=== PATIENT | female | born 1995 | race Caucasian/White ===

== ENCOUNTER 2016-08-30 19:21 | Inpatient (IN) | payer OTHER ==
[~2016-08-30] VITALS: Ht 152.4 cm; Wt 40.8 kg
[2016-08-31 15:20] LABS: *AMPHETAMINE, URINE POSITIVE (NEGATIVE); *BARBITURATE, URINE NEGATIVE (NEGATIVE); *CANNABINOID, URINE NEGATIVE (NEGATIVE); *COCCAINE, URINE NEGATIVE (NEGATIVE); *OPIATE, URINE POSITIVE (NEGATIVE); *PHENCYCLIDINE SCREEN,URINE NEGATIVE (NEGATIVE)
[2016-08-31] MEDS ORDERED: LORAZEPAM 1 MG TABLET PO PRN ×2 (15:45)
[2016-08-31] MEDS ORDERED: ACETAMINOPHEN 325 MG TABLET PO PRN (15:45)
[2016-08-31] MEDS ORDERED: MAGNESIUM HYDROXIDE 30 ML LIQUID UDC PO PRN (15:45)
[2016-08-31] MEDS ORDERED: IBUPROFEN 600 MG TABLET PO PRN (15:45)
[2016-08-31] MEDS ORDERED: MAG HYDROX/AL HYDROX/SIMETH 30 ML LIQUID UDC PO PRN (15:45)
[2016-08-31] MEDS ORDERED: DICYCLOMINE HCL 20 MG TABLET PO PRN (15:45)
[2016-08-31] MEDS ORDERED: THIAMINE HCL 200 MG/2 ML VIAL IM ONE (15:45)
[2016-08-31] MEDS ORDERED: LORAZEPAM 2 MG/1 ML VIAL IM PRN (15:45)
[2016-08-31] MEDS ORDERED: CLONIDINE HCL 0.1 MG TABLET PO PRN (15:45)
[2016-08-31] MEDS ORDERED: BUPRENORPHINE HCL 2 MG TAB.SUBL SL PRN (15:45)
[2016-08-31] MEDS ORDERED: MIRALAX 17 GM POWD.PACK PO PRN (15:45)
[2016-08-31] MEDS ORDERED: HYDROXYZINE PAMOATE 25 MG CAPSULE PO PRN (15:45)
[2016-08-31] MEDS ORDERED: ONDANSETRON ODT 4 MG TAB.RAPDIS SL PRN (15:45)
[2016-08-31] MEDS ORDERED: LOPERAMIDE HCL 2 MG CAPSULE PO PRN ×2 (15:45)
[2016-08-31 15:56] LABS: *URINE HCG, QUAL NEGATIVE (NEGATIVE)
[2016-08-31 17:10] VITALS: BP 96/61
[2016-08-31] MEDS: LORAZEPAM 1 MG TABLET PO SCH ×2 (17:19→21:36)
[2016-08-31 17:38] LABS: BASOPHILS % (AUTO) 0.4 % (0.0-2.0); EOSINOPHILS % (AUTO) 0.4 % (0.0-7.0); HEMATOCRIT 45.4 % (37-47); HEMOGLOBIN 14.8 G/DL (12.0-16.0); LYMPHOCYTES # (AUTO) 1.6 K/UL (0.8-4.8); LYMPHOCYTES % (AUTO) 18.6 % (20.5-51.5); MEAN CORPUSCULAR HEMOGLOBIN 29.6 UUG (27.0-31.0); MEAN CORPUSCULAR HGB CONC 33 g/dL (32.0-37.0); MEAN CORPUSCULAR VOLUME 90.6 FL (81.0-99.0); MONOCYTES # (AUTO) 0.5 K/UL (0.1-1.30); MONOCYTES % (AUTO) 5.9 % (0.0-11.0); NEUTROPHILS # (AUTO) 6.7 K/UL (1.8-8.9); NEUTROPHILS % (AUTO) 74.7 % (38.5-71.5); PLATELET COUNT (AUTO) 319 K/UL (150-450); RED BLOOD CELL COUNT(AUTO) 5.01 MIL/UL (4.2-5.4); RED CELL DISTRIBUTION WIDTH 13.4 % (11.5-14.5); WHITE BLOOD COUNT (AUTO) 8.8 K/UL (4.0-11.2)
[2016-08-31 18:00] LABS: ETHANOL < 3 MG/DL (0-0)
[2016-08-31 18:07] LABS: ALANINE AMINOTRANSFERASE 14 U/L (14-59); ALBUMIN 4.1 g/dL (3.4-5.0); ALKALINE PHOSPHATASE 56 U/L (50-136); AMYLASE 49 U/L (25-115); ASPARTATE AMINOTRANSFERASE 19 U/L (15-37); BILIRUBIN,TOTAL 0.2 mg/dL (0.2-1.0); CALCIUM 9.2 mg/dL (8.5-10.1); CARBON DIOXIDE 27 mmol/L (21-32); CHLORIDE 105 mmol/L (98-107); CREATININE 0.8 mg/dL (0.6-1.3); GFR 90 mL/min (>60); GLUCOSE 63 mg/dL (74-106); LIPASE 181 U/L (73-393); MAGNESIUM 2.4 mg/dL (1.8-2.4); POTASSIUM 4.4 mmol/L (3.5-5.1); SODIUM SERUM 142 mmol/L (136-145); TOTAL PROTEIN, SERUM 8.1 g/dL (6.4-8.2); UREA NITROGEN, BLOOD 5 mg/dL (7-18)
[2016-08-31 18:18] LABS: THYROID STIMULATING HORMONE 0.537 mIU/mL (0.358-3.740)
[2016-08-31 18:20] LABS: HIV-1 p24 ANTIGEN NON REACTIVE (NONREACTIVE); HIV-1/2 ANTIBODY NON REACTIVE (NONREACTIVE)
[2016-08-31 20:00] VITALS: BP 106/66
[2016-08-31] MEDS: METHOCARBAMOL 750 MG TABLET PO PRN (21:36)
[2016-09-01] VITALS: BP 115/70
[2016-09-01] MEDS: diphenhydrAMINE 50 MG CAPSULE PO PRN (01:43)
[2016-09-01 04:00] VITALS: BP 109/66
[2016-09-01 08:04] VITALS: BP 90/58
[2016-09-01] MEDS ORDERED: TUBERCULIN,PURIF.PROT.DERIV. 5 TU/0.1 ML TEST ID ONE (09:00)
[2016-09-01] MEDS: BUPRENORPHINE HCL 2 MG TAB.SUBL SL SCH ×5 (09:00→20:36)
[2016-09-01] MEDS: MULTIVITAMINS,THERAPEUTIC TABLET PO SCH (09:23)
[2016-09-01] MEDS: THIAMINE HCL 100 MG TABLET PO SCH (09:23)
[2016-09-01] MEDS: LORAZEPAM 1 MG TABLET PO SCH ×4 (09:23→20:35)
[2016-09-01] MEDS: FOLIC ACID 1 MG TABLET PO SCH (09:23)
[2016-09-01] MEDS: FLUOXETINE HCL 20 MG CAPSULE PO SCH (09:23)
[2016-09-01 12:25] VITALS: BP 112/69
[2016-09-01 16:30] VITALS: BP 96/62
[2016-09-01 20:00] VITALS: BP 105/67
[2016-09-01] MEDS: GABAPENTIN 300 MG CAPSULE PO SCH (20:35)
[2016-09-01] MEDS: METHOCARBAMOL 750 MG TABLET PO PRN (20:36)
[2016-09-02] VITALS: BP 101/64
[2016-09-02] MEDS: diphenhydrAMINE 50 MG CAPSULE PO PRN ×2 (00:28→23:20)
[2016-09-02 04:00] VITALS: BP 103/61
[2016-09-02 08:00] VITALS: BP 95/61
[2016-09-02] MEDS: FLUOXETINE HCL 20 MG CAPSULE PO SCH (09:41)
[2016-09-02] MEDS: MULTIVITAMINS,THERAPEUTIC TABLET PO SCH (09:42)
[2016-09-02] MEDS: THIAMINE HCL 100 MG TABLET PO SCH (09:42)
[2016-09-02] MEDS: LORAZEPAM 1 MG TABLET PO SCH ×3 (09:42→21:02)
[2016-09-02] MEDS: BUPRENORPHINE HCL 2 MG TAB.SUBL SL SCH ×3 (09:42→21:01)
[2016-09-02] MEDS: FOLIC ACID 1 MG TABLET PO SCH (09:42)
[2016-09-02] MEDS: GABAPENTIN 300 MG CAPSULE PO SCH ×3 (09:42→21:01)
[2016-09-02] MEDS ORDERED: BISACODYL 5 MG TABLET.DR PO PRN (11:15)
[2016-09-02 12:00] VITALS: BP 117/67
[2016-09-02] MEDS: BACLOFEN 10 MG TABLET PO SCH ×2 (15:16→21:01)
[2016-09-02] MEDS: DOCUSATE SODIUM 250 MG CAPSULE PO SCH (15:18)
[2016-09-02 16:00] VITALS: BP 110/68
[2016-09-02] MEDS: BOOST PLUS 237 ML LIQUID (RICH CHOCOLATE) PO SCH (17:36)
[2016-09-02 20:00] VITALS: BP 106/61
[2016-09-03] VITALS: BP 101/53
[2016-09-03 04:00] VITALS: BP 104/58
[2016-09-03 08:00] VITALS: BP 104/61
[2016-09-03] MEDS: THIAMINE HCL 100 MG TABLET PO SCH (08:20)
[2016-09-03] MEDS: BOOST PLUS 237 ML LIQUID (RICH CHOCOLATE) PO SCH ×2 (08:20→16:34)
[2016-09-03] MEDS: GABAPENTIN 300 MG CAPSULE PO SCH ×2 (08:20→14:10)
[2016-09-03] MEDS: LORAZEPAM 1 MG TABLET PO SCH ×4 (08:21→21:36)
[2016-09-03] MEDS: MULTIVITAMINS,THERAPEUTIC TABLET PO SCH (08:21)
[2016-09-03] MEDS: DOCUSATE SODIUM 250 MG CAPSULE PO SCH (08:21)
[2016-09-03] MEDS: BACLOFEN 10 MG TABLET PO SCH ×3 (08:21→21:36)
[2016-09-03] MEDS: FOLIC ACID 1 MG TABLET PO SCH (08:21)
[2016-09-03] MEDS: FLUOXETINE HCL 20 MG CAPSULE PO SCH (08:46)
[2016-09-03] MEDS ORDERED: BUPRENORPHINE HCL 2 MG TAB.SUBL SL SCH (09:00)
[2016-09-03 12:00] VITALS: BP 106/65
[2016-09-03] MEDS: BUPRENORPHINE HCL 2 MG TAB.SUBL SL SCH ×2 (14:10→21:37)
[2016-09-03 14:14] LABS: HCV AB >11.0 s/co ratio (0.0-0.9); HEPATITIS B CORE AB, IgM Negative (Negative); HEPATITIS B SURFACE AG Negative (Negative)
[2016-09-03 16:00] VITALS: BP 106/64
[2016-09-03] MEDS ORDERED: FLEET ENEMA 133 ML BOTTLE RC PRN (16:00)
[2016-09-03] MEDS ORDERED: MAGNESIUM CITRATE 296 ML BOTTLE PO PRN (16:00)
[2016-09-03 20:00] VITALS: BP 138/77
[2016-09-03] MEDS ORDERED: GABAPENTIN 300 MG CAPSULE PO SCH (21:00)
[2016-09-03] MEDS: diphenhydrAMINE 50 MG CAPSULE PO PRN (23:44)
[2016-09-04] VITALS: BP 103/60
[2016-09-04 07:59] LABS: CALCIUM 8.2 mg/dL (8.5-10.1); CREATININE 0.8 mg/dL (0.6-1.3); PHOSPHOROUS 4.9 mg/dL (2.5-4.9); POTASSIUM 4.3 mmol/L (3.5-5.1)
[2016-09-04] MEDS: BOOST PLUS 237 ML LIQUID (RICH CHOCOLATE) PO SCH ×2 (08:00→16:42)
[2016-09-04] MEDS ORDERED: GABAPENTIN 300 MG CAPSULE PO SCH (09:00)
[2016-09-04] MEDS: MULTIVITAMINS,THERAPEUTIC TABLET PO SCH (09:35)
[2016-09-04] MEDS: THIAMINE HCL 100 MG TABLET PO SCH (09:35)
[2016-09-04] MEDS: DOCUSATE SODIUM 250 MG CAPSULE PO SCH (09:36)
[2016-09-04] MEDS: FLUOXETINE HCL 20 MG CAPSULE PO SCH (09:36)
[2016-09-04] MEDS: LORAZEPAM 1 MG TABLET PO SCH ×3 (09:36→21:32)
[2016-09-04] MEDS: FOLIC ACID 1 MG TABLET PO SCH (09:36)
[2016-09-04] MEDS: BUPRENORPHINE HCL 2 MG TAB.SUBL SL SCH ×3 (09:36→21:31)
[2016-09-04] MEDS: BACLOFEN 10 MG TABLET PO SCH ×3 (09:36→21:31)
[2016-09-04 10:22] VITALS: BP 98/60
[2016-09-04 13:04] VITALS: BP 112/70
[2016-09-04 14:06] LABS: *HCV QUANT HCV Not Detected IU/mL (.)
[2016-09-04] MEDS: GABAPENTIN 300 MG CAPSULE PO SCH ×2 (14:54→21:31)
[2016-09-04 18:02] VITALS: BP 111/64
[2016-09-04 20:00] VITALS: BP 111/59
[2016-09-05] VITALS: BP 118/58
[2016-09-05] MEDS: diphenhydrAMINE 50 MG CAPSULE PO PRN ×2 (00:14→23:43)
[2016-09-05] MEDS: BOOST PLUS 237 ML LIQUID (RICH CHOCOLATE) PO SCH ×2 (08:32→17:08)
[2016-09-05] MEDS ORDERED: BUPRENORPHINE HCL 2 MG TAB.SUBL SL SCH ×2 (09:00)
[2016-09-05] MEDS ORDERED: LORAZEPAM 1 MG TABLET PO SCH ×2 (09:00)
[2016-09-05 09:08] VITALS: BP 105/62
[2016-09-05] MEDS: BACLOFEN 10 MG TABLET PO SCH ×3 (09:38→21:18)
[2016-09-05] MEDS: FLUOXETINE HCL 20 MG CAPSULE PO SCH (09:38)
[2016-09-05] MEDS: FOLIC ACID 1 MG TABLET PO SCH (09:38)
[2016-09-05] MEDS: MULTIVITAMINS,THERAPEUTIC TABLET PO SCH (09:38)
[2016-09-05] MEDS: GABAPENTIN 300 MG CAPSULE PO SCH (09:38)
[2016-09-05] MEDS: THIAMINE HCL 100 MG TABLET PO SCH (09:38)
[2016-09-05] MEDS: DOCUSATE SODIUM 250 MG CAPSULE PO SCH (09:39)
[2016-09-05 14:05] VITALS: BP 105/62
[2016-09-05] MEDS: GABAPENTIN 400 MG CAPSULE PO SCH ×2 (14:49→21:18)
[2016-09-05] MEDS ORDERED: Gabapentin PO (17:16)
[2016-09-05] MEDS ORDERED: DICY20TA28 PO (17:16)
[2016-09-05] MEDS ORDERED: CLON0.1T14 PO (17:16)
[2016-09-05] MEDS ORDERED: Docusate Sodium PO (17:16)
[2016-09-05] MEDS ORDERED: DIPH50CA37 PO (17:16)
[2016-09-05] MEDS ORDERED: Ibuprofen PO (17:16)
[2016-09-05] MEDS ORDERED: Fluoxetine Hcl PO (17:16)
[2016-09-05] MEDS ORDERED: Baclofen PO (17:16)
[2016-09-05] MEDS ORDERED: HYDR-3895 PO (17:16)
[2016-09-05 17:40] VITALS: BP 105/62
[2016-09-05 19:10] LABS: *AMPHETAMINE, URINE NEGATIVE (NEGATIVE); *BARBITURATE, URINE NEGATIVE (NEGATIVE); *CANNABINOID, URINE NEGATIVE (NEGATIVE); *COCCAINE, URINE NEGATIVE (NEGATIVE); *OPIATE, URINE NEGATIVE (NEGATIVE); *PHENCYCLIDINE SCREEN,URINE NEGATIVE (NEGATIVE)
[2016-09-05 20:00] VITALS: BP 115/63
[2016-09-06] VITALS: BP 102/64
[2016-09-06 03:06] LABS: *AMPHETAMINE Positive (.); *CODEINE Positive (.); *HYDROMORPHONE Negative (Cutoff=300); *METHAMPHETAMINE Positive (.); *OPIATES Positive ng/mL (Cutoff=300)
[2016-09-06 08:00] VITALS: BP 110/68
[2016-09-06] MEDS: FLUOXETINE HCL 20 MG CAPSULE PO SCH (08:07)
[2016-09-06] MEDS: GABAPENTIN 400 MG CAPSULE PO SCH (08:07)
[2016-09-06] MEDS: MULTIVITAMINS,THERAPEUTIC TABLET PO SCH (08:07)
[2016-09-06] MEDS: THIAMINE HCL 100 MG TABLET PO SCH (08:07)
[2016-09-06] MEDS: DOCUSATE SODIUM 250 MG CAPSULE PO SCH (08:07)
[2016-09-06] MEDS: BACLOFEN 10 MG TABLET PO SCH (08:07)
[2016-09-06] MEDS: FOLIC ACID 1 MG TABLET PO SCH (08:07)
[2016-09-06] MEDS: BOOST PLUS 237 ML LIQUID (RICH CHOCOLATE) PO SCH (08:07)
== END 2016-09-06 08:45 | disposition other institution (70) | DRG 895 ==
LOC: SRC 08-31 14:03
PROVIDERS: ADMIT Internal Medicine; ATTEND Internal Medicine
PROC: HZ2ZZZZ Detoxification Services for Substance Abuse Treatment (ICD-10-PCS; principal; 2016-08-31)
PROC: HZ41ZZZ Group Counseling for Substance Abuse Treatment, Behavioral (ICD-10-PCS; 2016-09-01)
PROC: HZ31ZZZ Individual Counseling for Substance Abuse Treatment, Behavioral (ICD-10-PCS; 2016-09-02)
DX: F11.23 Opioid dependence with withdrawal (principal); E46 Unspecified protein-calorie malnutrition; Z68.1 Body mass index [BMI] 19.9 or less, adult; F15.20 Other stimulant dependence, uncomplicated; F10.230 Alcohol dependence with withdrawal, uncomplicated; Y90.9 Presence of alcohol in blood, level not specified; Z90.49 Acquired absence of other specified parts of digestive tract; Z81.1 Family history of alcohol abuse and dependence; Z81.8 Family history of other mental and behavioral disorders; Z59.0 Homelessness; Z88.0 Allergy status to penicillin; F41.9 Anxiety disorder, unspecified; B19.20 Unspecified viral hepatitis C without hepatic coma; F17.210 Nicotine dependence, cigarettes, uncomplicated; F12.10 Cannabis abuse, uncomplicated; Z86.59 Personal history of other mental and behavioral disorders; K59.03 Drug induced constipation
CPT/HCPCS: 36415; 70030-TC; 80307; 80324; 80361; 83690; 83735; 84100; 84443; 84703; 85025; 86580; 86592; 86705; 86803; 87340; 87521; 87806; A4663; G6040-TC; J3411; Q0163

== ENCOUNTER 2016-09-16 12:54 | Inpatient (IN) | payer OTHER ==
[~2016-09-16] VITALS: Ht 152.4 cm; Wt 41.7 kg
[~2016-09-16 12:54] MED LIST: Baclofen PO; CLON0.1T14 PO; DICY20TA28 PO; DIPH50CA37 PO; Docusate Sodium PO; Fluoxetine Hcl PO; Gabapentin PO; HYDR-3895 PO; Ibuprofen PO
[2016-09-16] MEDS ORDERED: FLUO-120 PO (14:39)
[2016-09-16] MEDS ORDERED: TRAZ-147 PO (14:39)
[2016-09-16] MEDS ORDERED: GABA800T2 PO (14:39)
[2016-09-16 14:53] LABS: *URINE HCG, QUAL NEGATIVE (NEGATIVE)
[2016-09-16] MEDS ORDERED: MIRALAX 17 GM POWD.PACK PO PRN (15:00)
[2016-09-16] MEDS ORDERED: METHOCARBAMOL 750 MG TABLET PO PRN (15:00)
[2016-09-16] MEDS ORDERED: MAGNESIUM HYDROXIDE 30 ML LIQUID UDC PO PRN (15:00)
[2016-09-16] MEDS ORDERED: LOPERAMIDE HCL 2 MG CAPSULE PO PRN ×2 (15:00)
[2016-09-16] MEDS ORDERED: THIAMINE HCL 200 MG/2 ML VIAL IM ONE (15:00)
[2016-09-16] MEDS ORDERED: BUPRENORPHINE HCL 2 MG TAB.SUBL SL PRN (15:00)
[2016-09-16] MEDS ORDERED: ONDANSETRON 4 MG/2 ML VIAL IM PRN (15:00)
[2016-09-16] MEDS ORDERED: DICYCLOMINE HCL 20 MG TABLET PO PRN (15:00)
[2016-09-16] MEDS ORDERED: ONDANSETRON ODT 4 MG TAB.RAPDIS SL PRN (15:00)
[2016-09-16] MEDS ORDERED: ACETAMINOPHEN 325 MG TABLET PO PRN (15:00)
[2016-09-16] MEDS ORDERED: LORAZEPAM 2 MG/1 ML VIAL IM PRN (15:00)
[2016-09-16] MEDS ORDERED: diphenhydrAMINE 50 MG CAPSULE PO PRN (15:00)
[2016-09-16] MEDS ORDERED: MAG HYDROX/AL HYDROX/SIMETH 30 ML LIQUID UDC PO PRN (15:00)
[2016-09-16] MEDS ORDERED: LORAZEPAM 1 MG TABLET PO PRN (15:00)
[2016-09-16] MEDS ORDERED: CLONIDINE HCL 0.1 MG TABLET PO PRN (15:00)
[2016-09-16] MEDS ORDERED: CLON0.1T PO (15:02)
[2016-09-16] MEDS ORDERED: HYDR-3026 PO (15:02)
--- NOTE | 2016-09-16 15:10 | NUR ---
Admission Note VS: BP: 126/78 HR:62, SpO2: 98% RA, RR: 18, Temp: 98.2 Pain: 0/10 Height: 5'0" Weight: 92 LB Allergies: Penicillin Pt is a 21 y/o female admitted to [facility] on 09/16/16 at 1500. Pt is under the care of Dr. Dexter for Heroin and alcohol dependence. Pt denies suicidal and homicidal ideations at this time. Pt reports being at [facility] in the last 30 days. Pt reports being homeless at this time. MRSA has been ordered and nasal swab has been done per unit protocol. Pt denies Chest Pain and SOB. Pt brought Gabapentin 900mg, Trazodone 100mg and Prozac with her. Upon assessment pt's skin is intact. COWS 0, CIWA 0 upon admission. NKA, A/Ox4 and able to answer questions necessary for the admission process. Pt is Full Code. VS WNL, Regular Diet. Pt reports Hx of anxiety, depression, HepC and anorexia. Reports she is hep c +, and had gall bladder removed last year. patient. Family Hx of alcoholism. Pt reports having multiple seizures in the past, last one in June of 2016. Pt denies having a PCP. Breathing is even and unlabored, SpO2 is 98% on RA. Pt ambulates with a steady gait. Pt reports regular bowel movement pattern of every two days when she isn't using heroin however due to heavy use her bowel movements have become irregular. LBM on 09/14/16. Pt reports smoking [address] Dexter has been notified, pt has been placed on a 4 day Ativan and 4 day Subutex taper set to begin 09/17/16. All needs have been met. Pt has been oriented to the room and the unit. All safety measures in place per hospital policy. Bed in lowest position, side rails up x2 and padded, call-light within reach. Will continue to monitor. Substance Abuse: Heroin: 1.g IV daily for 2.54 weeks. Last Use: 1.g IV 09/16/16 1000 Alcohol: 1 pint of vodka daily for 2.5 weeks. Last Use: 09/16/16 0700
[2016-09-16 15:11] LABS: *AMPHETAMINE, URINE NEGATIVE (NEGATIVE); *BARBITURATE, URINE NEGATIVE (NEGATIVE); *CANNABINOID, URINE NEGATIVE (NEGATIVE); *COCCAINE, URINE NEGATIVE (NEGATIVE); *OPIATE, URINE POSITIVE (NEGATIVE); *PHENCYCLIDINE SCREEN,URINE NEGATIVE (NEGATIVE)
[2016-09-16 15:35] LABS: BASOPHILS % (AUTO) 0.4 % (0.0-2.0); EOSINOPHILS % (AUTO) 0.2 % (0.0-7.0); HEMATOCRIT 42.9 % (37-47); HEMOGLOBIN 14.5 G/DL (12.0-16.0); LYMPHOCYTES # (AUTO) 1.6 K/UL (0.8-4.8); LYMPHOCYTES % (AUTO) 13.7 % (20.5-51.5); MEAN CORPUSCULAR HEMOGLOBIN 29.8 UUG (27.0-31.0); MEAN CORPUSCULAR HGB CONC 34 g/dL (32.0-37.0); MEAN CORPUSCULAR VOLUME 88.3 FL (81.0-99.0); MONOCYTES # (AUTO) 0.5 K/UL (0.1-1.30); MONOCYTES % (AUTO) 4.3 % (0.0-11.0); NEUTROPHILS # (AUTO) 9.9 K/UL (1.8-8.9); NEUTROPHILS % (AUTO) 81.4 % (38.5-71.5); PLATELET COUNT (AUTO) 265 K/UL (150-450); RED BLOOD CELL COUNT(AUTO) 4.86 MIL/UL (4.2-5.4)
[2016-09-16] MEDS: LORAZEPAM 1 MG TABLET PO PRN (15:44)
[2016-09-16 15:48] LABS: ETHANOL < 3 MG/DL (0-0)
[2016-09-16 15:52] LABS: ALANINE AMINOTRANSFERASE 24 U/L (14-59); ALKALINE PHOSPHATASE 59 U/L (50-136); AMYLASE 29 U/L (25-115); ASPARTATE AMINOTRANSFERASE 22 U/L (15-37); BILIRUBIN,TOTAL 0.8 mg/dL (0.2-1.0); CARBON DIOXIDE 24 mmol/L (21-32); CHLORIDE 95 mmol/L (98-107); CREATININE 0.9 mg/dL (0.6-1.3); GLUCOSE 104 mg/dL (74-106); MAGNESIUM 1.9 mg/dL (1.8-2.4); POTASSIUM 3.5 mmol/L (3.5-5.1); TOTAL PROTEIN, SERUM 8.6 g/dL (6.4-8.2); UREA NITROGEN, BLOOD 13 mg/dL (7-18)
[2016-09-16 16:00] VITALS: BP 128/75
[2016-09-16 16:02] LABS: LIPASE 66 U/L (73-393); THYROID STIMULATING HORMONE 0.405 mIU/mL (0.358-3.740)
--- NOTE | 2016-09-16 16:15 | NUR ---
Medication re-assessment Medication was effective. Pt reports relief from withdrawal symptoms. CIWA went from 7 to 2.
--- NOTE | 2016-09-16 16:44 | NUR ---
PRN Ativan Administered PRN Ativan 1mg per Dr. Dexter for withdrawal symptoms.
[2016-09-16 17:50] LABS: *BLOOD, URINE 3+ (NEGATIVE); *CLARITY,URINE SLIGHTLY CLOUDY (CLEAR); *COLOR,URINE YELLOW (YELLOW); *KETONES,URINE 4+ (NEGATIVE); *PROTEIN,URINE 1+ (NEGATIVE); *UROBILINOGEN,URINE 0.2 E.U./dl (NORMAL); LEUKOCYTE ESTERASE ,URINE 1+ (NEGATIVE); NITRITE, URINE NEGATIVE (NEGATIVE); PH,URINE 5.5 (5.0-8.0); UGLUCOSE NEGATIVE (NEGATIVE)
[2016-09-16 18:16] LABS: *BILIRUBIN,URIN 1+ (NEGATIVE)
[2016-09-16 18:21] LABS: BACTERIA,URINE FEW /HPF (NONE SEEN); SQUAMOUS EPITHELIAL CELL,UR MODERATE /HPF (NONE SEEN); URINE AMORPHOUS URATE FEW /HPF
--- NOTE | 2016-09-16 18:50 | NUR ---
End of Shift Endorsed pt to nightshift nurse. PT is tolerating the taper well, pt is moderately withdrawing AEB CIWA 7, COWS 6. Pt is a 21 y/o female admitted to [facility] on 09/16/16 at 1500. Pt is under the care of Dr. Dexter for Heroin and alcohol dependence. Pt denies suicidal and homicidal ideations at this time. Pt reports being at [facility] in the last 30 days. Pt reports being homeless at this time. MRSA has been ordered and nasal swab has been done per unit protocol. Pt denies Chest Pain and SOB. Pt brought Gabapentin 900mg, Trazodone 100mg and Prozac with her. Upon assessment pt's skin is intact. COWS 0, CIWA 0 upon admission. NKA, A/Ox4 and able to answer questions necessary for the admission process. Pt is Full Code. VS WNL, Regular Diet. Pt reports Hx of anxiety, depression, HepC and anorexia. Reports she is hep c +, and had gall bladder removed last year. patient. Family Hx of alcoholism. Pt reports having multiple seizures in the past, last one in June of 2016. Pt denies having a PCP. Breathing is even and unlabored, SpO2 is 98% on RA. Pt ambulates with a steady gait. Pt reports regular bowel movement pattern of every two days when she isn't using heroin however due to heavy use her bowel movements have become irregular. LBM on 09/14/16. Pt reports smoking [address] Dexter has been notified, pt has been placed on a 4 day Ativan and 4 day Subutex taper set to begin 09/17/16. All needs have been met. Pt has been oriented to the room and the unit. All safety measures in place per hospital policy. Bed in lowest position, side rails up x2 and padded, call-light within reach. Will continue to monitor.
[2016-09-16 20:00] VITALS: BP 109/67
--- NOTE | 2016-09-16 20:00 | NUR ---
1999 Patient received awake and lying quietly in bed watching television. Patient responds to nurse's greeting and introduction with, " I was here a few weeks ago. I remember you". Patient is oriented to person, place, day, date and her personal situation. Easily reoriented to time. Patient's color is tannish-pink and her skin is clean, warm, dry and intact. Lung sounds are clear bilaterally and active bowel sounds are noted X 4 abdominal Quads, per auscultation. Patient denies any pain or other discomforts at this time and she states that since her admission today, she has just been basically resting. She did not attend PM group tonight, but she states that she has eaten a little from her regular diet tray and is taking fluids okay, with no gastric issues noted so far. Vital signs are: 98.2-80-18 109/67, O2 Sat 96%, COWS 1, CIWA 1. Patient was admitted today, 09/16/16, for Heroin and Alcohol withdrawal and she has been started on a 4-Day Ativan medication taper and will start on a 4-Day Subutex medication taper on 09/17/16 per MD orders, for withdrawal symptoms. Patient's mood/affect is slightly flat and withdrawn, however she is cooperative and verbally appropriate when interacting with nurse. Patient offers no requests or c/o anything at this time. Bed is locked and in lowest position, bed rails are up X 2 and call light within patient's easy reach.
[2016-09-16] MEDS ORDERED: LORAZEPAM 1 MG TABLET PO SCH (21:00)
[2016-09-16] MEDS: GABAPENTIN 400 MG CAPSULE PO SCH (21:58)
[2016-09-17] VITALS: BP 99/63
--- NOTE | 2016-09-17 04:00 | NUR ---
Patient refused to be awakened to have V/S taken at this time.
--- NOTE | 2016-09-17 06:30 | NUR ---
0630 Patient slept a total of a 10 hours and she had 1 void and no stools. Total intake was 355 ml p.o. No Prn medications given this shift. V/SS afebrile, last CIWA 1, last COWS 1. Patient is presently resting comfortably with eyes closed and respirations quiet, even, unlabored at 12. Patient is in stable condition at this time.
--- NOTE | 2016-09-17 07:05 | NUR ---
Patient is sleeping at this time, so CIWA, COWS deferred at this time.
--- NOTE | 2016-09-17 07:09 | NUR ---
Start of Shift Endorsement received from nightshift nurse. Pt is a 21 y/o female admitted for alcohol and heroin dependence. Pt has been placed on a 4 day Ativan and 4 day Subutex taper set to began today, 09/17/16. Pt was tolerating the detox process during the night and mildly withdrawing AEB CIWA 1, COWS 1 at 0400. Pt appears to be sleeping at this time, eyes closed, breathing even and unlabored. Pt is responsive to touch and name. Pt received PRN Ativan during the night. VS WNL. Full Code. Pt is in STABLE condition at this time. Remains compliant with medication and diet regimen. All needs have been met, All safety measures in place per hospital policy. Bed in lowest position, side rails up x2, call-light within reach. Will continue to monitor.
[2016-09-17 08:00] VITALS: BP 103/67
[2016-09-17 08:34] LABS: CREATININE 0.8 mg/dL (0.6-1.3); MAGNESIUM 1.9 mg/dL (1.8-2.4); PHOSPHOROUS 3.5 mg/dL (2.5-4.9); POTASSIUM 3.4 mmol/L (3.5-5.1)
[2016-09-17 08:35] LABS: BASOPHILS % (AUTO) 0.4 % (0.0-2.0); EOSINOPHILS # (AUTO) 0.1 K/uL (0.0-0.7); EOSINOPHILS % (AUTO) 1.4 % (0.0-7.0); HEMATOCRIT 40.2 % (37-47); HEMOGLOBIN 13.9 G/DL (12.0-16.0); LYMPHOCYTES # (AUTO) 1.6 K/UL (0.8-4.8); LYMPHOCYTES % (AUTO) 24.1 % (20.5-51.5); MEAN CORPUSCULAR HEMOGLOBIN 30.3 UUG (27.0-31.0); MEAN CORPUSCULAR HGB CONC 34 g/dL (32.0-37.0); MEAN CORPUSCULAR VOLUME 88.1 FL (81.0-99.0); MONOCYTES # (AUTO) 0.5 K/UL (0.1-1.30); MONOCYTES % (AUTO) 7.9 % (0.0-11.0); NEUTROPHILS # (AUTO) 4.6 K/UL (1.8-8.9); NEUTROPHILS % (AUTO) 66.2 % (38.5-71.5); PLATELET COUNT (AUTO) 288 K/UL (150-450); RED BLOOD CELL COUNT(AUTO) 4.57 MIL/UL (4.2-5.4)
[2016-09-17 08:40] LABS: WHITE BLOOD COUNT (AUTO) 6.8 K/UL (4.0-11.2)
[2016-09-17] MEDS ORDERED: TUBERCULIN,PURIF.PROT.DERIV. 5 TU/0.1 ML TEST ID ONE (09:00)
[2016-09-17] MEDS: THIAMINE HCL 100 MG TABLET PO SCH (09:36)
[2016-09-17] MEDS: GABAPENTIN 400 MG CAPSULE PO SCH ×3 (09:36→20:51)
[2016-09-17] MEDS: LORAZEPAM 1 MG TABLET PO SCH ×3 (09:36→20:51)
[2016-09-17] MEDS: FOLIC ACID 1 MG TABLET PO SCH (09:36)
[2016-09-17] MEDS: MULTIVITAMINS,THERAPEUTIC TABLET PO SCH (09:37)
[2016-09-17] MEDS: BUPRENORPHINE HCL 2 MG TAB.SUBL SL SCH ×3 (09:39→20:52)
[2016-09-17] MEDS ORDERED: POTASSIUM CHLORIDE 10 MEQ CAPSULE.SA PO ONE (09:45)
[2016-09-17] MEDS: FLUOXETINE HCL 20 MG CAPSULE PO SCH (11:46)
[2016-09-17 12:00] VITALS: BP 98/62
[2016-09-17] MEDS: LORAZEPAM 1 MG TABLET PO PRN (13:09)
--- NOTE | 2016-09-17 13:09 | NUR ---
PRN ATIVAN Administered PRN Ativan 1mg for increased anxiety and heart rate. Pt presented with CIWA 7. Will re-assess.
--- NOTE | 2016-09-17 13:40 | NUR ---
Medication Re-assessment Pt reports decrease in anxiety and presents with CIWA score of 4. Medication was effective.
[2016-09-17 16:00] VITALS: BP 115/68
--- NOTE | 2016-09-17 18:45 | NUR ---
End of Shift Endorsement given to nightshift nurse. Pt is a 21 y/o female admitted for alcohol and heroin dependence. Pt has been placed on a 4 day Ativan and 4 day Subutex taper starting today. Pt is tolerating the detox process, moderately withdrawing at this time AEB CIWA 5, COWS 7 at 1600. PT participated in groups and activities. Educated pt on importance of learning coping mechanisms to help her succeed in being sober. Pt received PRN Ativan. VS WNL with tachycardia. Intake: 1600ml, Void x2, BM x0. Full Code. Pt is in STABLE condition at this time. Remains compliant with medication and diet regimen. All needs have been met, All safety measures in place per hospital policy. Bed in lowest position, side rails up x2, call-light within reach. Will continue to monitor.
[2016-09-17 20:00] VITALS: BP 119/68
[2016-09-17] MEDS: QUETIAPINE FUMARATE 25 MG TABLET PO SCH (20:52)
[2016-09-18] VITALS: BP 82/54
--- NOTE | 2016-09-18 04:00 | NUR ---
Patient refused to be awakened for V/S to be taken at this time.
--- NOTE | 2016-09-18 07:20 | NUR ---
Start of Shift Report from night nurse: pt is 21 y/o male here for Opiate r/t Heroin IV 1g/d and Etoh r/t Vodka 1pint/d; 4 day Ativan and 4 day Subutex tapers ordered. Pt is a full code, regular diet, allergic the PCN, fall and seizure precautions ordered. HHx: Seizures r/t w/d's, anxiety, depression, relapse. V/S stable except HR is tachycardic at rest 120-130's at rest and Dr. Dexter notified with EKG ordered with NSR with ST and no new recommendations. Skin is intact. No PRN's given last night. Last COWS 3 CIWA 2. Pt is awake in room resting in bed. Will cont. to monitor the pt.
[2016-09-18 07:38] LABS: HEPATITIS B SURFACE AG Negative (Negative)
[2016-09-18 08:00] VITALS: BP 109/65
[2016-09-18] MEDS: MULTIVITAMINS,THERAPEUTIC TABLET PO SCH (08:37)
[2016-09-18] MEDS: GABAPENTIN 400 MG CAPSULE PO SCH ×3 (08:37→21:29)
[2016-09-18] MEDS: THIAMINE HCL 100 MG TABLET PO SCH (08:37)
[2016-09-18] MEDS: LORAZEPAM 1 MG TABLET PO SCH ×4 (08:37→21:30)
[2016-09-18] MEDS: FLUOXETINE HCL 20 MG CAPSULE PO SCH (08:38)
[2016-09-18] MEDS: FOLIC ACID 1 MG TABLET PO SCH (08:42)
[2016-09-18] MEDS ORDERED: BUPRENORPHINE HCL 2 MG TAB.SUBL SL SCH (09:00)
[2016-09-18 12:00] VITALS: BP 116/71
--- NOTE | 2016-09-18 12:27 | NUR ---
Therapist encouraged client to participate in daily group psychotherapy, and explained some benefits of attending. Client expressed that she sould attend group at 11am and 3:30pm today.
[2016-09-18] MEDS: BACLOFEN 10 MG TABLET PO SCH ×2 (15:20→21:30)
[2016-09-18] MEDS: BUPRENORPHINE HCL 2 MG TAB.SUBL SL SCH ×2 (15:20→21:30)
[2016-09-18] MEDS: DICYCLOMINE HCL 20 MG TABLET PO SCH ×2 (15:20→21:30)
[2016-09-18 16:00] VITALS: BP 107/71
--- NOTE | 2016-09-18 17:40 | NUR ---
New Orders-MRSA +MRSA Nares; new orders for Contact Isolations and Bactroban topical applied as ordered. New orders for HCV Reflex and Chem 22 labs 09/19/16. Will cont. to monitor the pt.
--- NOTE | 2016-09-18 18:44 | NUR ---
End of Shift Report to night nurse: pt is 21 y/o male here for Opiate r/t Heroin IV 1g/d and Etoh r/t Vodka 1pint/d; 4 day Ativan and 4 day Subutex tapers ordered. Pt is a full code, regular diet, allergic the PCN, fall and seizure precautions ordered. HHx: Seizures r/t w/d's, anxiety, depression, relapse. V/S stable except HR 109 and decreased to 90 after Subutex and Ativan given. Skin is intact. No PRN's given last night. New Lab results for +MRSA with new orders for Contact Isolations and Bactroban topical. New orders for Labs; HCV Reflex and Chem 22 tomorrow. I discussed the UA results with Dr. Dexter and no new orders. Pt attended group and activities. No hallucinations delusions or suicidal ideations note. Last COWS 5 CIWA 3.
[2016-09-18 20:00] VITALS: BP 121/75
--- NOTE | 2016-09-18 20:00 | NUR ---
Start of Shift Note: Report received from day shift nurse. Pt is a 21 yo female admitted on 09/16/2016 for medically-supervised observation of withdrawal from ETOH and opiates. Pt reports using 1gm IV heroin and drinking 1 pint vodka daily for 2.5 weeks. Pt is on day 2 of 4-day Ativan and Subutex tapers. Pt received with last COWS=5, CIWA=3, and no PRN's were given during day shift. Pt is full code status. Pt reports allergy to PCN. Pt is on a regular diet. Pt is on isolation for MRSA nares. Pt reports PMHx: seizure (06/2016), anxiety, and depression. Pt received in room, and reports anxiety and headache. Bed is in low position and locked, side rails up x2, call light within reach. Will continue to monitor.
[2016-09-18] MEDS: MUPIROCIN 2% OINT 22 GM TUBE NS SCH (21:29)
[2016-09-18] MEDS: IBUPROFEN 600 MG TABLET PO PRN (21:30)
[2016-09-18] MEDS: QUETIAPINE FUMARATE 25 MG TABLET PO SCH (21:30)
--- NOTE | 2016-09-18 21:30 | NUR ---
PRN Motrin: Patient complains of headache. Patient rates pain 5/10. Administered PRN Motrin as ordered. Will continue to monitor.
--- NOTE | 2016-09-18 22:30 | NUR ---
PRN Reassessment: Patient reports that PRN Motrin was effective, and denies headache at this time.
[2016-09-19] VITALS: BP 100/50
--- NOTE | 2016-09-19 | NUR ---
COWS/CIWA Deferred: COWS and CIWA assessments are deferred for sleep. V/S stable. All safety precautions are in place. Will continue to monitor. Addendum: 09/19/16 at 0326 by TRIXIE CANCHOLA RN Amended: Links added.
[2016-09-19 04:00] VITALS: BP 117/67
--- NOTE | 2016-09-19 04:00 | NUR ---
COWS/CIWA Deferred: Ordered 04:00 COWS and CIWA deferred for sleep. V/S stable. All safety precautions are in place. Will continue to monitor. Addendum: 09/19/16 at 0440 by TRIXIE CANCHOLA RN Amended: Links added.
--- NOTE | 2016-09-19 07:10 | NUR ---
Start of Shift Report from night nurse with update: pt is 21 y/o male here for Opiate r/t Heroin IV 1g/d and Etoh r/t Vodka 1pint/d; 4 day Ativan and 4 day Subutex tapers ordered. Pt is a full code, regular diet, allergic the PCN, fall and seizure precautions ordered. HHx: Seizures r/t w/d's, anxiety, depression, relapse. V/S stable with improved HR in 90's last night. Skin is intact. PRN Motrin given last night for MICHAUD. Endorsed to me to given MRSA education to the pt. Last COWS 4 CIWA 6. Pt is awake in room resting in bed. Will cont. to monitor the pt.
--- NOTE | 2016-09-19 07:23 | NUR ---
End of Shift Note: Pt is a 21 yo female admitted to [facility] on 09/16/2016 for medically-supervised observation of withdrawal from ETOH and opiates. Pt reports PMHx: seizure (06/2016), anxiety, and depression. Pt is full code status. Pt is on a regular diet. Pt reports allergy to PCN. Pt is on isolation for MRSA nares. Pt reports using 1gm IV heroin and drinking 1 pint vodka daily for 2.5 weeks. Pt is to start day 3 of 4-day Ativan and Subutex tapers. Scheduled medication regime effectively managed s/s of withdrawal this shift, in addition to PRN Motrin for headache. Last COWS=4, CIWA=6 at 20:00. V/S stable throughout shift, with increased HR of 92 at 20:00. Total fluid intake this shift: 473 ml; output: urine x 1 and BM 0. Pt is currently in bed and slept 8 hours this shift. All needs have been attended and met. Pt endorsed to day shift nurse.
[2016-09-19 08:00] VITALS: BP 107/71
[2016-09-19 08:05] LABS: CREATININE 0.9 mg/dL (0.6-1.3); MAGNESIUM 1.9 mg/dL (1.8-2.4); PHOSPHOROUS 4.4 mg/dL (2.5-4.9); POTASSIUM 4.6 mmol/L (3.5-5.1)
[2016-09-19] MEDS: BUPRENORPHINE HCL 2 MG TAB.SUBL SL SCH ×3 (09:58→21:26)
[2016-09-19] MEDS: DICYCLOMINE HCL 20 MG TABLET PO SCH ×3 (09:58→21:25)
[2016-09-19] MEDS: THIAMINE HCL 100 MG TABLET PO SCH (09:58)
[2016-09-19] MEDS: MULTIVITAMINS,THERAPEUTIC TABLET PO SCH (09:58)
[2016-09-19] MEDS: GABAPENTIN 400 MG CAPSULE PO SCH ×3 (09:59→21:25)
[2016-09-19] MEDS: BACLOFEN 10 MG TABLET PO SCH (09:59)
[2016-09-19] MEDS: FLUOXETINE HCL 20 MG CAPSULE PO SCH (09:59)
[2016-09-19] MEDS: FOLIC ACID 1 MG TABLET PO SCH (09:59)
[2016-09-19] MEDS: MUPIROCIN 2% OINT 22 GM TUBE NS SCH ×2 (09:59→21:24)
[2016-09-19] MEDS: IBUPROFEN 600 MG TABLET PO PRN (09:59)
[2016-09-19] MEDS: LORAZEPAM 1 MG TABLET PO SCH ×3 (09:59→21:25)
[2016-09-19] MEDS ORDERED: BENZOCAINE/MENTH/CETYLPYRD LOZENGE MM PRN (10:30)
[2016-09-19 12:00] VITALS: BP 108/59
[2016-09-19] MEDS ORDERED: BACLOFEN 10 MG TABLET PO SCH (15:00)
[2016-09-19 16:00] VITALS: BP 117/89
[2016-09-19] MEDS: BACLOFEN 20 MG TABLET PO SCH ×2 (17:01→21:26)
--- NOTE | 2016-09-19 19:16 | NUR ---
End of Shift Report to night nurse: pt is 21 y/o female here for Opiate r/t Heroin IV 1g/d and Etoh r/t Vodka 1pint/d; 4 day Ativan and 4 day Subutex tapers ordered. Pt is a full code, regular diet, allergic the PCN, fall and seizure precautions & Contact Isolations r/t +MRSA Nares ordered. HHx: Seizures r/t w/d's, anxiety, depression, relapse. V/S stable with HR 100 max during my shift and stable 92-93. Skin is intact. No PRN's given during my shift. New orders for CXR to r/o TB since pt refused PPD test on 09/17/16 and endorsed to night nurse to f/u with results. Pt attend group therapy and and activities during my shift. No hallucinations, delusions or suicidal ideations. Last COWS 5 CIWA 3
[2016-09-19 20:00] VITALS: BP 113/77
--- NOTE | 2016-09-19 20:00 | NUR ---
Start of Shift Note: Report received from day shift nurse. Pt is a 21 Y/O female admitted on 09/16/2016 for medically-supervised withdrawal from ETOH and opiates. Pt reports using 1gm IV heroin and drinking 1 pint vodka daily for 2.5 weeks. Pt is on day 3 of 4-day Ativan and Subutex tapers. Pt received with last COWS=5, CIWA=3, and no PRN's were given during day shift. Full code, regular diet, allergy to PCN. Pt is on isolation for MRSA nares. CXR ordered for TB clearance. Pt reports PMHx: seizure (06/2016), anxiety, and depression. Pt received in room, and reports anxiety and diaphoresis. Bed is in low position and locked, side rails up x2, call light within reach. Will continue to monitor.
[2016-09-19] MEDS: QUETIAPINE FUMARATE 25 MG TABLET PO SCH (21:25)
[2016-09-20] VITALS: BP 100/57
--- NOTE | 2016-09-20 | NUR ---
COWS/CIWA Deferred: COWS and CIWA deferred for sleep. V/S stable. All safety precautions are in place. Will continue to monitor. Addendum: 09/20/16 at 0140 by TRIXIE CANCHOLA RN Amended: Links added.
[2016-09-20 04:00] VITALS: BP 106/59
--- NOTE | 2016-09-20 04:00 | NUR ---
COWS and CIWA Deferred: COWS and CIWA assessments are deferred for sleep. V/S stable. Will continue to monitor. Addendum: 09/20/16 at 0559 by TRIXIE CANCHOLA RN Amended: Links added.
--- NOTE | 2016-09-20 07:05 | NUR ---
Start of Shift Endorsement received from nightshift nurse. Pt is a 21 y/o female admitted for alcohol and heroin dependence. Pt has been placed on a 4 day Ativan and 4 day Subutex taper. Pt is tolerating the taper well AEB COWS 4, CIWA 4. Pt has been placed in contact isolation due to positive MRSA results. Pt did not receive any PRN medications.Pt reports sleeping 7 hours during the night. VS WNL. Full Code. Pt is in STABLE condition at this time. Remains compliant with medication and diet regimen. All needs have been met, All safety measures in place per hospital policy. Bed in lowest position, side rails up x2, call-light within reach. Will continue to monitor.
--- NOTE | 2016-09-20 07:15 | NUR ---
End of Shift Note: Pt is a 21 Y/O female admitted to [facility] on 09/16/2016 for medically-supervised withdrawal from ETOH and opiates. Pt reports PMHx: seizure (last 06/2016), depression, and anxiety. Full code, allergy to PCN, regular diet , isolation for MRSA nares. Pt reports drinking 1 pint vodka daily and using 1gm IV heroin for 2.5 weeks. Pt is to start the fourth day of 4-day Ativan and Subutex tapers. Scheduled medication regime effectively managed s/s of withdrawal this shift, and no PRN medications were necessary. Last COWS=4, CIWA=4 at 20:00. V/S stable throughout shift. CXR results pending for TB clearance. Total fluid intake this shift: 1006 ml; output: urine x 3 and BM x 0. Pt is currently in bed and slept 7 hours this shift. All needs have been attended and met. Pt endorsed to day shift nurse.
[2016-09-20 08:00] VITALS: BP 113/69
[2016-09-20] MEDS: DICYCLOMINE HCL 20 MG TABLET PO SCH ×3 (08:33→21:47)
[2016-09-20] MEDS: MULTIVITAMINS,THERAPEUTIC TABLET PO SCH (08:33)
[2016-09-20] MEDS: GABAPENTIN 400 MG CAPSULE PO SCH ×3 (08:33→21:45)
[2016-09-20] MEDS: LORAZEPAM 1 MG TABLET PO SCH ×2 (08:34→21:45)
[2016-09-20] MEDS: THIAMINE HCL 100 MG TABLET PO SCH (08:34)
[2016-09-20] MEDS: FOLIC ACID 1 MG TABLET PO SCH (08:34)
[2016-09-20] MEDS: BUPRENORPHINE HCL 2 MG TAB.SUBL SL SCH ×2 (08:34→21:46)
[2016-09-20] MEDS: BACLOFEN 20 MG TABLET PO SCH ×3 (08:34→21:45)
[2016-09-20] MEDS: MUPIROCIN 2% OINT 22 GM TUBE NS SCH ×2 (08:38→21:45)
[2016-09-20] MEDS: FLUOXETINE HCL 20 MG CAPSULE PO SCH (09:20)
[2016-09-20 12:00] VITALS: BP 125/66
[2016-09-20 16:00] VITALS: BP 112/49
--- NOTE | 2016-09-20 16:53 | NUR ---
Therapist informed client of group times. Client did not go to groups because she is not feeling well.
--- NOTE | 2016-09-20 18:49 | NUR ---
End of Shift Endorsement given to nightshift nurse. Pt is a 21 y/o female admitted for alcohol and heroin dependence. Pt has been placed on a 4 day Ativan and 4 day Subutex taper. Pt is tolerating the taper well AEB COWS 3, CIWA 2. Pt has been placed in contact isolation due to positive MRSA results. Pt did not receive any PRN medications.Pt spent the whole day in her room reporting she just wants to rest. Pt did not participate in groups and activities. Intake: 1150ml, Void x1, BM x0. Educated pt on importance of staying hydrated. VS WNL. Full Code. Pt is in STABLE condition at this time. Remains compliant with medication and diet regimen. All needs have been met, All safety measures in place per hospital policy. Bed in lowest position, side rails up x2, call-light within reach. Will continue to monitor.
[2016-09-20 20:00] VITALS: BP 118/68
--- NOTE | 2016-09-20 20:00 | NUR ---
Start of Shift Note: Report received from day shift nurse. Pt is a 21F admitted on 09/16/2016 for medically-supervised withdrawal from ETOH and opiates, and reported using 1gm IV heroin and drinking 1 pint vodka daily for 2.5 weeks. Pt has one remaining dose of a 4-day Ativan taper and has two doses remaining of a 4-day Subutex taper. Pt received with last COWS=5, CIWA=3, and no PRN's were given during day shift. Full code status, on regular diet, and reports allergy to PCN. Pt is on isolation for MRSA nares. Pt reports PMHx: seizure (06/2016), anxiety, and depression. Pt received in room, and reports anxiety, chills, diaphoresis, restlessness, dyspepsia. Pupils 6mm. Bed is in low position and locked, side rails up x2, call light within reach. Will continue to monitor.
[2016-09-20] MEDS: QUETIAPINE FUMARATE 25 MG TABLET PO SCH (21:46)
[2016-09-21] VITALS: BP 105/72
--- NOTE | 2016-09-21 | NUR ---
COWS and CIWA Deferred: COWS and CIWA assessments are deferred for sleep. V/S stable. All safety precautions are in place. Will continue to monitor. Addendum: 09/21/16 at 0213 by TRIXIE CANCHOLA RN Amended: Links added.
[2016-09-21 04:00] VITALS: BP 86/52
--- NOTE | 2016-09-21 04:00 | NUR ---
COWS/CIWA Deferred: COWS/CIWA deferred for sleep, V/S stable, all safety precautions in place. Addendum: 09/21/16 at 0500 by TRIXIE CANCHOLA RN Amended: Links added.
--- NOTE | 2016-09-21 06:37 | NUR ---
End of Shift Note: Pt is a 21F admitted to [facility] on 09/16/2016 for medically-supervised withdrawal from alcohol and heroin. Pt reports PMHx: seizure, depression, and anxiety. Full code status, allergy to PCN, regular diet, and contact precautions/isolation for MRSA nares. Pt reports drinking a pint of vodka and using 1gm IV heroin daily for 2.5 weeks. Pt has completed a 4-day Ativan taper and has one remaining dose of a 4-day Subutex taper. Scheduled medication regime effectively managed s/s of withdrawal this shift, and no PRN medications were necessary. Last COWS=7, CIWA=6 at 20:00. V/S stable throughout shift. Total fluid intake this shift: 1355 ml; output: urine x 1 and BM x 0. Pt is currently in bed and slept 6 hours this shift. All needs have been attended and met. Pt endorsed to day shift nurse.
--- NOTE | 2016-09-21 07:55 | NUR ---
START OF SHIFT: RECEIVED PT A/O X 4.CONTACT ISOLATION NOTED FOR MRSA NARES. PT STATES SHE SLEPT OK. SHE CO BODY ACHES AND CHILLS. SUBUTEX TAPER IN PROGRESS.ATIVAN COMPLETED. PT WILL RECEIVE LAST DOSE OF SUBUTEX THIS AM. COWS 3 CIWA 1. SHE STATES SHE IS ATTENDING GROUPS AND ACTIVITIES. WILL CONTINUE TO MONITOR AND PROVIDE SAFE AND SUPPORTIVE ENVIRONMENT.
[2016-09-21 08:00] VITALS: BP 106/70
[2016-09-21] MEDS ORDERED: BUPRENORPHINE HCL 2 MG TAB.SUBL SL SCH (09:00)
[2016-09-21] MEDS: GABAPENTIN 400 MG CAPSULE PO SCH ×3 (09:58→21:00)
[2016-09-21] MEDS: THIAMINE HCL 100 MG TABLET PO SCH (09:59)
[2016-09-21] MEDS: DICYCLOMINE HCL 20 MG TABLET PO SCH ×3 (09:59→20:59)
[2016-09-21] MEDS: BACLOFEN 20 MG TABLET PO SCH ×3 (09:59→20:59)
[2016-09-21] MEDS: MULTIVITAMINS,THERAPEUTIC TABLET PO SCH (09:59)
[2016-09-21] MEDS: FOLIC ACID 1 MG TABLET PO SCH (09:59)
[2016-09-21] MEDS: MUPIROCIN 2% OINT 22 GM TUBE NS SCH ×2 (10:00→20:59)
[2016-09-21] MEDS: FLUOXETINE HCL 20 MG CAPSULE PO SCH (10:00)
[2016-09-21 12:00] VITALS: BP 116/62
[2016-09-21 13:35] LABS: *AMPHETAMINE, URINE NEGATIVE (NEGATIVE); *BARBITURATE, URINE NEGATIVE (NEGATIVE); *CANNABINOID, URINE NEGATIVE (NEGATIVE); *COCCAINE, URINE NEGATIVE (NEGATIVE); *OPIATE, URINE NEGATIVE (NEGATIVE); *PHENCYCLIDINE SCREEN,URINE NEGATIVE (NEGATIVE)
[2016-09-21] MEDS ORDERED: GABA-536 PO (15:22)
[2016-09-21] MEDS ORDERED: QUET25TA PO (15:22)
[2016-09-21 16:00] VITALS: BP 97/63
--- NOTE | 2016-09-21 16:00 | NUR ---
COWS AND CIWA DEFERRED. PT IS ASLEEP WITH RESPIRATIONS EVEN AND UNLABORED.CALL HARDIN IN REACH. BED LOCKED AND IN LOWEST POSITION.WILL CONTINUE TO MONITOR.
[2016-09-21 18:06] LABS: *HCV QUANT HCV Not Detected IU/mL (.)
--- NOTE | 2016-09-21 18:35 | NUR ---
END OF SHIFT: PT COMPLETED TAPERS. LAST CIWA AND COWS DEFERRED PT WAS ASLEEP. 1500 MEDS ALSO HELD FOR SLEEP. SHE HAD SOME MILD ANXIETY AND BODY ACHES THIS AM. NO PRNS GIVEN AND SHE STATES THE DETOX MEDS WERE EFFECTIVE. CONTACT ISOLATION CONTINUE FOR MRSA NARES. BACTROBAN OINTMENT ADMINISTERED ORDERED. DISCHARGE PLANNING IN PROGRESS FOR TOMORROW. WILL PASS SHIFT REPORT TO ONCOMING NIGHT NURSE.
--- NOTE | 2016-09-21 19:30 | NUR ---
START OF SHIFT Pt is a 21 Y/O Female admitted on 09/16/2016 for ETOH and opiates dependency. Full code status, on regular diet, and reports allergy to PCN. Pt is on isolation for MRSA of the nares. Pt reports PMH: seizures, anxiety, and depression. Pt received in stable condition, scheduled to be discharged in the morning.All safety measures in place. Bed is in low position and locked, side rails up x2, call light within reach. Will continue to monitor.
[2016-09-21 20:00] VITALS: BP 99/65
[2016-09-21] MEDS: QUETIAPINE FUMARATE 25 MG TABLET PO SCH (21:03)
--- NOTE | 2016-09-22 | NUR ---
COWS/CIWA Deferred.V/S REFUSED Pt sleeping soundly;breathing even and non labored,no s/s of distress noted,all safety measures in place,will monitor.
--- NOTE | 2016-09-22 04:00 | NUR ---
COWS/CIWA Deferred.V/S REFUSED Pt sleeping soundly;breathing even and non labored,no s/s of distress noted,all safety measures in place,will monitor.
--- NOTE | 2016-09-22 06:46 | NUR ---
END OF SHIFT Pt is a 21 Y/O Female admitted on 09/16/2016 for ETOH and opiates dependency. Full code status, on regular diet, and reports allergy to PCN. Pt is on isolation for MRSA of the nares. Pt reports PMH: seizures, anxiety, and depression. Pt is scheduled to be discharged this morning.No PRN meds given last night;she slept 6 hrs ;fluid intake was 1946 mls; voided x 2.All safety measures in place. Bed is in low position and locked, side rails up x2, call light within reach. Will continue to monitor.
[2016-09-22 08:00] VITALS: BP 100/60
--- NOTE | 2016-09-22 08:05 | NUR ---
START OF SHIFT: RECEIVED PT A/O X 4. SHE DENIES COMPLAINTS. SHE STATES THE DETOX MEDS WERE EFFECTIVE AND SHE FEELS BETTER. SHE COMPLETED ATIVAN AND SUBUTEX TAPER. COWS 1 CIWA 0 DISCHARGE PLANNING IN PROGRESS FOR THIS MORNING. WILL CONTINUE TO MONITOR
[2016-09-22] MEDS: MULTIVITAMINS,THERAPEUTIC TABLET PO SCH (08:55)
[2016-09-22] MEDS: MUPIROCIN 2% OINT 22 GM TUBE NS SCH (08:55)
[2016-09-22] MEDS: FLUOXETINE HCL 20 MG CAPSULE PO SCH (08:56)
[2016-09-22] MEDS: GABAPENTIN 400 MG CAPSULE PO SCH (08:56)
[2016-09-22] MEDS: DICYCLOMINE HCL 20 MG TABLET PO SCH (08:56)
[2016-09-22] MEDS: BACLOFEN 20 MG TABLET PO SCH (08:56)
[2016-09-22] MEDS: FOLIC ACID 1 MG TABLET PO SCH (08:56)
[2016-09-22] MEDS: THIAMINE HCL 100 MG TABLET PO SCH (08:56)
--- NOTE | 2016-09-22 09:50 | NUR ---
DISCHARGE: PT IS A/O X 4. PT DENIES S/I AND H/I. BELONGINGS RETURNED. EDUCATED PT ON DISCHARGE INSTRUCTIONS AND MEDICATIONS. PT EXPRESSED VERBAL UNDERSTANDING OF EDUCATION. MEDICATED ORDERED. VS WNL. [facility] COORDINATOR ESCORTED PT TO [facility] WHERE SHE WAS TRANSPORTED TO [facility] BY [facility] AT 0942.
== END 2016-09-22 09:42 | disposition other institution (70) | DRG 895 ==
LOC: SRC 14:01
PROVIDERS: ADMIT Internal Medicine; ATTEND Internal Medicine
PROC: HZ2ZZZZ Detoxification Services for Substance Abuse Treatment (ICD-10-PCS; principal; 2016-09-16)
PROC: HZ41ZZZ Group Counseling for Substance Abuse Treatment, Behavioral (ICD-10-PCS; 2016-09-18)
DX: F10.239 Alcohol dependence with withdrawal, unspecified (principal); E46 Unspecified protein-calorie malnutrition; Z68.1 Body mass index [BMI] 19.9 or less, adult; E87.2 Acidosis; F33.9 Major depressive disorder, recurrent, unspecified; F15.20 Other stimulant dependence, uncomplicated; F11.23 Opioid dependence with withdrawal; Y90.9 Presence of alcohol in blood, level not specified; Z22.322 Carrier or suspected carrier of Methicillin resistant Staphylococcus aureus; Z90.49 Acquired absence of other specified parts of digestive tract; Z59.0 Homelessness; Z81.1 Family history of alcohol abuse and dependence; Z81.8 Family history of other mental and behavioral disorders; B19.20 Unspecified viral hepatitis C without hepatic coma; F41.9 Anxiety disorder, unspecified; Z88.0 Allergy status to penicillin; Z86.59 Personal history of other mental and behavioral disorders; Z59.1 Inadequate housing; F17.210 Nicotine dependence, cigarettes, uncomplicated; E87.6 Hypokalemia; D72.829 Elevated white blood cell count, unspecified; R82.71 Bacteriuria
CPT/HCPCS: 36415; 70030-TC; 71010; 80307; 83605; 83690; 83735; 84100; 84443; 84703; 85025; 86592; 86705; 86803; 87086; 87340; 87521; 87806; 93005; A4663; G0480; J3411